=== PATIENT | female | born 1970 | race Caucasian/White ===

== ENCOUNTER 2016-06-10 14:17 | Outpatient (CLI) | payer OTHER ==
[~2016-06-10] VITALS: Ht 165.1 cm; Wt 76.7 kg
[2016-06-10 14:19] VITALS: Ht 165.1 cm; Wt 76.7 kg
[2016-06-10 14:22] VITALS: BP 113/63; PULSE 76; RESP 17
[2016-06-10] MEDS ORDERED: PRENAT PO (14:24)
[2016-06-10] MEDS ORDERED: LACTATED RINGER'S 1,000 ML IV ONE (15:00)
[2016-06-10 15:19] LABS: ADD UMIC YES; URINE BILIRUBIN (Dip) NEGATIVE (NEGATIVE); URINE BLOOD (Dip) NEGATIVE (NEGATIVE); URINE COLOR LT. YELLOW (YELLOW); URINE GLUCOSE (Dip) NEGATIVE (NEGATIVE); URINE KETONES (Dip) NEGATIVE (NEGATIVE); URINE LEUKOCYTE ESTERASE (Dip) NEGATIVE (NEGATIVE); URINE NITRITE (Dip) NEGATIVE (NEGATIVE); URINE TOTAL PROTEIN (Dip) NEGATIVE (NEGATIVE); URINE UROBILINOGEN (Dip) 0.2 E.U./dL (0.1-1.0)
--- NOTE | 2016-06-10 15:31 | RADRPT ---
PROCEDURE: US evaluation of placenta. CLINICAL INDICATION: Positive test. Vaginal bleeding. TECHNIQUE: Multiple sonographic images of the gravid uterus were obtained utilizing mcmahon-scale tyler ging. Sagittal and transverse images were obtained. The images were reviewed on a PACS workstation . The placenta was evaluated. COMPARISON: No prior studies are available for comparison. FINDINGS: There is a single live intrauterine . heart rate is 154 beats per minute. Position is cephalic and placenta is anterior grade II. There is no placenta previa or abruption. IMPRESSION: 1. Placenta is anterior grade II with no abruption or previa. RPTAT: QQ .Irvin Bose MD, MD Date Time Electronically viewed and signed by .Irvin Bose MD, on 06/10/2016 15:30 .R/
[2016-06-10 15:36] LABS: BACTERIA,URINE FEW; SQUAMOUS EPITHELIAL CELL,UR MANY; URINE RBCS NONE SEEN /HPF (0)
--- NOTE | 2016-06-10 16:32 | CONS ---
Date/Time of Note Date/Time of Note DATE: 06/10/16 TIME: 16:22 Consult Date/Type/Reason Admit Date/Time June 10, 2016. This patient is a 45 years old 4 para 3 with EDC of 08/31/2016 is now 28 weeks and 2 days , came to OB triage complaining of a brown vaginal spotting since last no bleeding no contractions on examination she is a fairly well-developed well-nourished lady in no acute distress. Her ear nose throat appear to be normal. Neck is normal no neck no neck vein distention no thyromegaly chest is clear to auscultation her precaution breasts are soft free of masses abdomen is soft no contraction at this time heart tone is normal tracing does not show any evidence of labor or extremities are normal no edema no medical. No CVA 10 she denies any dysuria denies having intercourse today last night or the night before In fact she is here she says that she suffered from her for a few months her urinalysis was normal with no evidence of a with no evidence of infection slightly cloudy in color,. Ultrasound report is there is a single live intrauterine heart tones 154 position cephalic placenta is anterior grade 2 There is no placenta previa or abruption With this finding the situation was discussed with the patient and she will be discharged home to return to see her x ray technician in morning. in the morning. Initial Consult Date 06/10/2016 Laboratory Tests Test 06/10/16 14:20 Urine Bacteria FEW Urine Bilirubin NEGATIVE Urine Clarity CLOUDY Urine Color LT. YELLOW Urine Glucose NEGATIVE% Urine Hemoglobin NEGATIVE Urine Ketones NEGATIVE Urine Leukocyte Esterase NEGATIVE Urine Microscopic RBC NONE SEEN/HPF Urine Microscopic WBC 0-2/HPF Urine Nitrite NEGATIVE Urine Specific [place] 1.015 Urine Squamous Epithelial Cells MANY Urine Total Protein NEGATIVE Urine Urobilinogen 0.2 E.U./dL Urine pH 8.0 Current Medications Medications (Trade) Dose Ordered Sig/Eugenia Route PRN Reason Start Time Stop Time Status Last Admin Dose Admin Lactated Ringer's (Lr) 1,000 ml @ 1,000 mls/hr Q1H ONCE IV 06/10/16 15:00 06/10/16 16:03 DC 06/10/16 14:53 1,000 MLS/HR Objective Vital Signs Date Time Temp Pulse Resp B/P Pulse Ox O2 Delivery O2 Flow Rate FiO2 06/10/16 14:22 98.1 76 17 113/63 Room Air Results/Medications Results 24 hrs Laboratory Tests Test 06/10/16 14:20 Urine Bacteria FEW Urine Bilirubin NEGATIVE Urine Clarity CLOUDY Urine Color LT. YELLOW Urine Glucose NEGATIVE Urine Hemoglobin NEGATIVE Urine Ketones NEGATIVE Urine Leukocyte Esterase NEGATIVE Urine Microscopic RBC NONE SEEN Urine Microscopic WBC 0-2 Urine Nitrite NEGATIVE Urine Specific [place] 1.015 Urine Squamous Epithelial Cells MANY Urine Total Protein NEGATIVE Urine Urobilinogen 0.2 E.U./dL Urine pH 8.0 Medications None SG VILLARREAL MD Jun 10, 2016 16:32
--- NOTE | 2016-06-10 16:41 | TRIAGE ---
OB Triage Datetime Report Generated by CPN: 06/10/2016 16:41 Datetime: 06/10/2016 16:00 Labor Evaluation Frequency: 0 Pattern: Normal: <= 5 Contractions in 10 Minutes Resting Tone [place]: Relaxed Heart Rate FHR Baseline Rate: 145 Monitor Mode: External US FHR Baseline Changes: No Baseline Change Variability: Moderate 6-25 bpm Accelerations: 15X15 Decelerations: None Category: Category I Pain Assessment Pain Scale: 0 Pain Presence: None/Denies Pain Type: N/A Datetime: 06/10/2016 15:00 Labor Evaluation Frequency: 0 Pattern: Normal: <= 5 Contractions in 10 Minutes Resting Tone [place]: Relaxed Heart Rate FHR Baseline Rate: 145 Monitor Mode: External US FHR Baseline Changes: No Baseline Change Variability: Moderate 6-25 bpm Decelerations: Variable Category: Category II Comments: APPROPRIATE FOR GESTATIONAL AGE Pain Assessment Pain Scale: 0 Pain Presence: None/Denies Pain Type: N/A Datetime: 06/10/2016 14:25 Assessment Type: Triage Maternal Assessment Level of Consciousness: Fully Conscious DTR's/Clonus: DTRs 2+; No Clonus Headache: Denies Blurred Vision: No Respiratory Effort: Unlabored; Regular Rhythm Breath Sounds, Left: Clear and Equal Breath Sounds, Right: Clear and Equal Nausea/Vomiting: Denies RUQ Epigastric Pain: Denies Lower Extremities Edema: None Degree: None Upper Extremities Edema: None Degree: None Facial Edema: None Fall Risk Assessment History of Falling: (0) No Secondary Diagnosis: (0) No Ambulatory Aid: (0) Bedrest/Nurse Assist IV Therapy: (0) No Gait: (0) Normal/Bedrest/Immobile Mental Status: (0) Oriented to Own Ability Fall Score: 0 Fall Risk Score Definition: No Risk: No action required Datetime: 06/10/2016 14:23 Pain Assessment Pain Scale: 0 Pain Presence: None/Denies Pain Type: N/A Datetime: 06/10/2016 14:19 EGA: 28.2 Datetime: 06/10/2016 14:12 Time of Arrival: 06/10/2016 14:12 Arrived By: Ambulatory Arrived From: Home Chief Complaint: PT PRESENTS TO TRIAGE COMPLAINING OF BROWNISH SPOTTING SINCE YESTERDAY Movement: Present Contractions: Denies/Absent Rupture of Membranes: Denies Vaginal Bleeding: None Vaginal Discharge: Present Recent Sexual Intercouse: Denies Abdominal Trauma: Not Applicable Patient Complaints: Back Pain Initial Plan: EFM/UA/US
--- NOTE | 2016-06-10 16:48 | CONS ---
Date/Time of Note Date/Time of Note DATE: 06/10/16 TIME: 16:33 Consultation Date/Type/Reason Admit Date/Time June 10, 2016. This patient is a 41 years old 7 para 6 with EDC of 08/08/2016 now 31 weeks and 4 days. Came in the triage area complaining of vaginal spotting since last night , she states that the discharge was bright red since this morning . Denies any intercourse the past few days. On examination she is a well-developed well-nourished lady as I mentioned about 31-1/2 week. Her ear nose throat is normal neck is normal , No neck vein distention no . Chest is clear Abdomen is soft no tenderness, Occasional contraction. heart tones is normal and reactive . No CVA tenderness . Extremities : no edema ,no varicosities, knee-jerk reflexes are normal. On pelvic examination; vulva and vagina appears to be normal ,she has slight brownish pinkish discharge. Cervix is closed , vulva and vagina are normal On ultrasound ; there is a single viable intrauterine gestation with heart rate of 149 in vertex presentation,. Biophysical profile of 8 out of 8 with MP of 19.8 cm . Placenta is posterior and there is no evidence of placenta abruption Estimated EDC by ultrasound was August 09, 2016 which makes her 31 weeks and 3 days. Urinalysis however 3+ blood and 3+ leuk esterase was reported. Disposition. Based on these findings and the possibility of urinary tract infection and consulting with Dr. Leon 1 g of Rocephin was given and a prescription for Macrobid 100 mg, to be taken 1 tablet every 12 hours. She will make an appointment early in the clinic to be seen by her order planner Initial Consult Date 06/10/2016 Laboratory Tests Test 06/10/16 14:20 Urine Bacteria FEW Urine Bilirubin NEGATIVE Urine Clarity CLOUDY Urine Color LT. YELLOW Urine Glucose NEGATIVE% Urine Hemoglobin NEGATIVE Urine Ketones NEGATIVE Urine Leukocyte Esterase NEGATIVE Urine Microscopic RBC NONE SEEN/HPF Urine Microscopic WBC 0-2/HPF Urine Nitrite NEGATIVE Urine Specific [place] 1.015 Urine Squamous Epithelial Cells MANY Urine Total Protein NEGATIVE Urine Urobilinogen 0.2 E.U./dL Urine pH 8.0 Current Medications Medications (Trade) Dose Ordered Sig/[place] Route PRN Reason Start Time Stop Time Status Last Admin Dose Admin Lactated Ringer's (Lr) 1,000 ml @ 1,000 mls/hr Q1H ONCE IV 06/10/16 15:00 06/10/16 16:03 DC 06/10/16 14:53 1,000 MLS/HR As I mentioned she is advised to start taking her Macrobid tablet every 12 hours and make an appointment to see her order planner to review the result of urine culture sensitivity in 3 days 24 HR Interval Summary Free Text/Dictation Exam/Review of Systems Vital Signs Vitals Vital Signs Date Time Temp Pulse Resp B/P Pulse Ox O2 Delivery O2 Flow Rate FiO2 06/10/16 14:22 98.1 76 17 113/63 Room Air Results Results 24 hrs Laboratory Tests Test 06/10/16 14:20 Urine Bacteria FEW Urine Bilirubin NEGATIVE Urine Clarity CLOUDY Urine Color LT. YELLOW Urine Glucose NEGATIVE Urine Hemoglobin NEGATIVE Urine Ketones NEGATIVE Urine Leukocyte Esterase NEGATIVE Urine Microscopic RBC NONE SEEN Urine Microscopic WBC 0-2 Urine Nitrite NEGATIVE Urine Specific [place] 1.015 Urine Squamous Epithelial Cells MANY Urine Total Protein NEGATIVE Urine Urobilinogen 0.2 E.U./dL Urine pH 8.0 SG VILLARREAL MD Jun 10, 2016 16:44
== END 2016-06-10 16:35 | disposition home or self-care (01) ==
LOC: L-D 14:17 → OBT 14:17
PROVIDERS: ATTEND Obstetrics & Gynecology
DX: O26.853 Spotting complicating pregnancy, third trimester (principal); O23.43 Unspecified infection of urinary tract in pregnancy, third trimester; O09.523 Supervision of elderly multigravida, third trimester; Z3A.31 31 weeks gestation of pregnancy
CPT/HCPCS: 36415; 76815; 81001; 96360; J7120; Z7500; 81003; G0463

== ENCOUNTER 2018-07-23 19:48 | Emergency (ER) | payer OTHER ==
[~2018-07-23] VITALS: Ht 165.1 cm; Wt 71.0 kg
[~2018-07-23 19:48] MED LIST: PRENAT PO
[2018-07-23 19:57] VITALS: Ht 165.1 cm; Wt 71.0 kg
[2018-07-23] MEDS ORDERED: KETOROLAC 30 MG INJ IM STA (21:53)
[2018-07-23] MEDS ORDERED: DEXAMETHASONE 10 MG/ML 1 ML INJ IM ONE (22:00)
[2018-07-23] MEDS ORDERED: CYCL10TA7 PO (22:17)
[2018-07-23] MEDS ORDERED: HYDR-4011 PO (22:17)
[2018-07-23] MEDS ORDERED: PRED20TA PO (22:17)
[2018-07-23 23:22] VITALS: BP 123/67; PULSE 60; RESP 19
--- NOTE | 2018-08-14 13:06 | ERD ---
ER Documentation Chief Complaint Chief Complaint RIGHT LOWER BACK AND LEG PAIN X 3 DAYS HPI Patient seen on 07/23/2018 47 yo F with no reported pmhx who presented to ED for evaluation of R lower back pain for the past 3 days. States pain radiates to RLE. She denies red flag symptoms such as LE numbness or paresthesia, urinary or bowel incontinence, saddle anesthesia, decrease in rectal tone. She is otherwise without complaint. Has tried tylenol for pain control without much improvement in pain. ROS All systems reviewed and are negative except as per history of present illness. Medications Home Meds Active Scripts Hydrocodone/Acetaminophen ([place] 5-325 Tablet) 1 Each Tablet, 1 TAB PO Q6H PRN for PAIN, #7 TAB Prov:FRANCHESCA DASILVA-C 07/23/18 Cyclobenzaprine Hcl* (Cyclobenzaprine Hcl*) 10 Mg Tablet, 10 MG PO TID, #15 TAB Prov:FRANCHESCA DASILVA-C 07/23/18 Prednisone (Prednisone) 20 Mg Tablet, 20 MG PO DAILY for 3 Days, TAB Prov:FRANCHESCA DASILVA-C 07/23/18 Reported Medications Multivit/Min/Fol Ac/Iron/Pren* ( S*) 1 Tab Tab, 1 TAB PO DAILY, TAB 06/10/16 Allergies Allergies: Coded Allergies: No Known Allergy (Unverified , 06/10/16) PMhx/Soc Medical and Surgical Hx: pt denies Medical Hx, pt denies Surgical Hx Hx Alcohol Use: No Hx Substance Use: No Hx Tobacco Use: No Smoking Status: Never smoker FmHx Family History: No diabetes, No coronary disease, No other Physical Exam Physical Exam Const: No acute distress Head: Atraumatic Eyes: Normal Conjunctiva Neck: Full range of motion. No meningismus. Resp: Clear to auscultation bilaterally Cardio: Regular rate and rhythm, no murmurs Abd: Soft, non tender, non distended. Normal bowel sounds Skin: No petechiae or rashes Back: No midline or flank tenderness, full ROM, RLE with 5/5 strength throughout, SILT throughout, good distal pulses, normal but painful gait Ext: No cyanosis, or edema Neur: Awake and alert, grossly non focal Psych: Normal Mood and Affect Results 24 hrs Laboratory Tests Test 07/23/18 22:14 POC Beta HCG, Qualitative NEGATIVE Current Medications Medications Dose Sig/Eugenia Start Time Status Last (Trade) Ordered Route PRN Stop Time Admin Dose Reason Admin 10 mg ONCE ONCE 07/23/18 DC 07/23/18 Dexamethasone IM 22:00 22:16 (Decadron) 07/23/18 22:01 Ketorolac 30 mg ONCE STAT 07/23/18 DC 07/23/18 Tromethamine IM 21:53 22:16 (Toradol) 07/23/18 21:55 Procedures/MDM 47 yo F who presents with c/o back pain consistent with sciatica type pain. Low suspicion for acute cord compression or cauda equina at this time, given presentation and symptoms, including epidural abscess or hematoma. Patient has no history of malignancy, active or distant history. Patient has no unexplained weight loss. No recent fevers, rigors, malaise, or recent infection. No history of IVDU or skin-popping. Patient does not have any history concerning for saddle anesthesia/perianal sensory loss or complaining of decreased rectal tone. Patient does not have urinary retention or inability to control urine from overflow. Patient has no tenderness overlying spinous process. Patient has no focal weakness on examination. ED course: Dexamethasone and pain control Discharge on short course of steroids and appropriate pain management Improved after symptomatic treatment, with less painful gait overall improved pain control PMD follow up Given exam and history, low suspicion for cord compression, cauda equina, epidural abscess/hematoma. Distally neurovascularly intact. Query likely musculoskeletal component. Discussed pain control,and follow up with PMD. Cautious return precautions discussed w/ full understanding DISPOSITION PLAN: We discussed follow up with the patient's primary care doctor within 24 to 48 hours. Patient counseled regarding my diagnostic impression and care plan. Prior to discharge all questions answered. Pt agrees with treatment plan and understands strict return precautions. Precautionary instructions provided including instructions to return to the ER if not improving or for any worsening or changing symptoms or concerns. Departure Diagnosis: Primary Impression: Back pain Condition: Stable Patient Instructions: Back Pain (Acute Or Chronic), Back Pain W/ Sciatica [facility] Usted se arango hecho un examen mdico de control que le indica que no est en che condicin que requiera tratamiento urgente en el Departamento de Emergencia. Un estudio ms profundo y el tratamiento de layne condicin pueden esperar sin ningn riesgo hasta que usted sea atendida/o en el consultorio de layne mdico o che clnica. Es responsabilidad suya arreglar che oneyda para el seguimiento del lamonte. MANEJO DE CONDICIONES NO URGENTES EN EL FUTURO 1) Si usted tiene un mdico de atencin primaria: Usted debera llamar a layne mdico de atencin primaria antes de venir al departamento de emergencia. Despus de las horas de consultorio, layne doctor o layne asociado/a est disponible por telfono. El mdico o enfermero de samira en el servicio telefnico puede asesorarle por jacklyn medio para atender el problema, o lamonte contrario se puede programar che oneyda. 2) Si usted no tiene un mdico de atencin primaria: Llame al mdico o clnica de referencia que aparece abajo bharat las horas de consultorio para hacer che oneyda para que le vean. CLINICAS: [facility] [phone] [facility] [phone] [facility] [phone] [facility]. [facility] [phone] [facility]. [place] [phone] [facility]. [phone] [address] Additional Instructions: Call your primary care doctor TOMORROW for an appointment during the next 1-2 days.See the doctor sooner or return here if your condition worsens before your appointment time. Admit Date/Time Admit Date/Time FRANCHESCA DASILVA PA-C Aug 14, 2018 13:06
== END 2018-07-23 23:23 | disposition home or self-care (01) ==
LOC: FTE 19:48
DX: M54.5 Low back pain (principal)
CPT/HCPCS: 81025; J1100; J1885; 96372